=== PATIENT | female | born 1975 | race Caucasian/White ===

== ENCOUNTER 2016-12-18 17:29 | Emergency (ER) | payer MEDICARE, OTHER | END 2016-12-18 23:40 | disposition left against medical advice (07) | LOC: ER1 17:29 | DX: Z53.21 Procedure and treatment not carried out due to patient leaving prior to being seen by health care provider (principal) ==

== ENCOUNTER → 2016-12-19 | Outpatient (CLI) | payer MEDICARE, OTHER | LOC: RAD 15:21 | DX: M25.552 Pain in left hip (principal) | CPT/HCPCS: 73502 ==

== ENCOUNTER → 2017-01-29 | Outpatient (CLI) | payer MEDICARE, OTHER | LOC: EMI 01-26 13:00 | DX: M54.5 Low back pain (principal); M79.7 Fibromyalgia; F32.9 Major depressive disorder, single episode, unspecified; M54.2 Cervicalgia; M51.36 Other intervertebral disc degeneration, lumbar region; M47.816 Spondylosis without myelopathy or radiculopathy, lumbar region | CPT/HCPCS: 72148 ==

== ENCOUNTER → 2020-12-19 | Day surgery (SDC) | payer MEDICARE, OTHER ==
[~2020-12-19] MED LIST: BENTYL 20MG TAB20 MG PO; CIPRO500 MG PO; CLARITIN10 MG PO; FLAGYL500 MG PO; FLONASE 0.05% N16 GM; GABAPENTIN800 MG PO; LEVEMIR100 UNIT/1 SQ; LIPITOR TAB 2020 MG PO; LISINOPRIL2.5 MG PO; METHLMAZOLE PO; NAPROSYN500 MG PO; OMEPRAZOLE20 M1 PO; OXYCODONE HCL10 MG PO; PROAIR DIGIHAL90 MCG INH; SINGULAIR10 MG PO; SYNJARDY PO; TAPAZOLE 10 MG10 MG PO; TRULICITY1.5 MG/0.5 SQ; ZOFRAN4 MG PO
== END | disposition home or self-care (01) ==
LOC: OR 07:38
PROVIDERS: Internal Medicine Gastroenterology
PROC: 0DB78ZX Excision of Stomach, Pylorus, Via Natural or Artificial Opening Endoscopic, Diagnostic (ICD-10-PCS; 2020-12-19)
PROC: 0DB68ZX Excision of Stomach, Via Natural or Artificial Opening Endoscopic, Diagnostic (ICD-10-PCS; principal; 2020-12-19 08:51)
DX: K29.51 Unspecified chronic gastritis with bleeding (principal); K21.00 Gastro-esophageal reflux disease with esophagitis, without bleeding; K76.0 Fatty (change of) liver, not elsewhere classified; J39.2 Other diseases of pharynx; E11.9 Type 2 diabetes mellitus without complications; I10 Essential (primary) hypertension; E21.3 Hyperparathyroidism, unspecified; J45.909 Unspecified asthma, uncomplicated; M19.90 Unspecified osteoarthritis, unspecified site; E05.00 Thyrotoxicosis with diffuse goiter without thyrotoxic crisis or storm; E78.5 Hyperlipidemia, unspecified; F41.9 Anxiety disorder, unspecified; E66.9 Obesity, unspecified; Z68.34 Body mass index [BMI] 34.0-34.9, adult; Z88.0 Allergy status to penicillin; Z79.891 Long term (current) use of opiate analgesic; Z79.899 Other long term (current) drug therapy
CPT/HCPCS: 36415; 80076; 82962; 84703; J2405; J2704

== ENCOUNTER → 2020-12-26 | Outpatient (CLI) | payer MEDICARE, OTHER ==
[2020-12-26 08:46] LABS: BUN/CREATININE RATIO 9 (0-10)
== END ==
LOC: OPSV2 07:38
PROVIDERS: Otolaryngology
DX: Z01.818 Encounter for other preprocedural examination (principal); E11.9 Type 2 diabetes mellitus without complications
CPT/HCPCS: 36415; 80048; 93005

== ENCOUNTER → 2020-12-28 | Day surgery (SDC) | payer MEDICARE, OTHER | END | disposition home or self-care (01) | LOC: OR 06:19 | PROVIDERS: Otolaryngology | PROC: 0CBM8ZX Excision of Pharynx, Via Natural or Artificial Opening Endoscopic, Diagnostic (ICD-10-PCS; principal; 2020-12-28 08:00) | DX: K14.8 Other diseases of tongue (principal); K21.9 Gastro-esophageal reflux disease without esophagitis; E78.00 Pure hypercholesterolemia, unspecified; F41.1 Generalized anxiety disorder; F32.9 Major depressive disorder, single episode, unspecified; E11.9 Type 2 diabetes mellitus without complications; E05.00 Thyrotoxicosis with diffuse goiter without thyrotoxic crisis or storm; I10 Essential (primary) hypertension; E78.5 Hyperlipidemia, unspecified; J45.909 Unspecified asthma, uncomplicated; M79.7 Fibromyalgia; M19.90 Unspecified osteoarthritis, unspecified site; F41.0 Panic disorder [episodic paroxysmal anxiety]; Z20.822 Contact with and (suspected) exposure to COVID-19; Z79.4 Long term (current) use of insulin; Z79.891 Long term (current) use of opiate analgesic; Z79.899 Other long term (current) drug therapy | CPT/HCPCS: 82962; 84703; 88341; 88342; 88365; J1100; J2001; J2250; J2270; J2405; J2704; J3010; J7120 ==

== ENCOUNTER 2021-01-02 09:43 | Emergency (ER) | payer MEDICARE, OTHER ==
[~2021-01-02 09:43] MED LIST changes: -CIPRO500 MG PO; -FLAGYL500 MG PO
[2021-01-02 11:20] LABS: HEMOGLOBIN 14.7 gm/dl (12.3-15.3); RED BLOOD COUNT 4.92 M/UL (4.00-5.10); WHITE BLOOD COUNT 19.2 K/UL (4.5-11.0)
[2021-01-02 11:29] LABS: BUN/CREATININE RATIO 14 (0-10)
[2021-01-02] MEDS ORDERED: ZOFRAN4 MG PO (15:47)
[2021-01-02] MEDS ORDERED: FLAGYL500 MG PO (15:47)
[2021-01-02] MEDS ORDERED: CIPRO500 MG PO (15:47)
== END 2021-01-02 16:08 | disposition home or self-care (01) ==
LOC: ER1 09:43
PROVIDERS: Emergency Medicine
DX: K52.9 Noninfective gastroenteritis and colitis, unspecified (principal); E11.9 Type 2 diabetes mellitus without complications; Z79.4 Long term (current) use of insulin; E78.5 Hyperlipidemia, unspecified; I10 Essential (primary) hypertension; J45.909 Unspecified asthma, uncomplicated; Z90.89 Acquired absence of other organs; Z88.0 Allergy status to penicillin; Z88.6 Allergy status to analgesic agent; Z88.8 Allergy status to other drugs, medicaments and biological substances
CPT/HCPCS: 80053; 81001; 82150; 82962; 83605; 83690; 84703; 85025; 96374; 96375; 99284; J2270; J2405; J7030; Q9967

== ENCOUNTER → 2021-01-28 | Outpatient (CLI) | payer MEDICARE, OTHER ==
[~2021-01-28] MED LIST changes: +CIPRO500 MG PO; +FLAGYL500 MG PO
== END ==
LOC: CT 01-21 11:30
PROVIDERS: Internal Medicine
DX: E11.21 Type 2 diabetes mellitus with diabetic nephropathy (principal); E05.00 Thyrotoxicosis with diffuse goiter without thyrotoxic crisis or storm; D37.02 Neoplasm of uncertain behavior of tongue
CPT/HCPCS: 36415; 70491; 83036; 83520; 84439; 84443; 84481; Q9967

== ENCOUNTER → 2021-02-26 | Outpatient (CLI) | payer MEDICARE, OTHER | LOC: CT 02-19 09:00 | DX: R59.0 Localized enlarged lymph nodes (principal); I72.8 Aneurysm of other specified arteries | CPT/HCPCS: 71260; Q9967 ==

== ENCOUNTER → 2021-06-21 | Outpatient (CLI) | payer MEDICARE, OTHER | LOC: RAD 10:47 | DX: R05 Cough (principal); J98.4 Other disorders of lung | CPT/HCPCS: 71046 ==

== ENCOUNTER 2021-06-22 17:44 | Inpatient (IN) | payer MEDICARE, OTHER ==
[~2021-06-22] VITALS: Ht 154.9 cm; Wt 81.6 kg
[2021-06-22 20:12] LABS: HEMOGLOBIN 13.9 gm/dl (12.3-15.3); RED BLOOD COUNT 4.92 M/UL (4.00-5.10); WHITE BLOOD COUNT 4.8 K/UL (4.5-11.0)
[2021-06-22 20:43] LABS: BUN/CREATININE RATIO 13 (0-10)
[2021-06-23 04:53] LABS: HEMOGLOBIN 13.4 gm/dl (12.3-15.3); RED BLOOD COUNT 4.74 M/UL (4.00-5.10); WHITE BLOOD COUNT 3.8 K/UL (4.5-11.0)
[2021-06-23 06:00] LABS: BUN/CREATININE RATIO 15 (0-10)
[2021-06-24 07:39] LABS: HEMOGLOBIN 13.2 gm/dl (12.3-15.3); RED BLOOD COUNT 4.72 M/UL (4.00-5.10)
[2021-06-24 07:45] LABS: WHITE BLOOD COUNT 4.9 K/UL (4.5-11.0)
[2021-06-24 08:10] LABS: BUN/CREATININE RATIO 25 (0-10)
--- NOTE | 2021-06-24 10:52 | NUR ---
CALLED PROVIDER FOR ANXIETY MEDICAITON FOR PATIENT AND STOOL SOFTENER. PROVIDER SAID HE WOULD PUT SOMETHING IN FOR PATIENT. WILL CONTINUE TO MONITOR.
[2021-06-25 03:40] LABS: HEMOGLOBIN 13.8 gm/dl (12.3-15.3); RED BLOOD COUNT 4.89 M/UL (4.00-5.10); WHITE BLOOD COUNT 4.9 K/UL (4.5-11.0)
[2021-06-25 04:09] LABS: BUN/CREATININE RATIO 29 (0-10)
[2021-06-26 03:23] LABS: HEMOGLOBIN 14.3 gm/dl (12.3-15.3); RED BLOOD COUNT 5.06 M/UL (4.00-5.10)
[2021-06-26 03:35] LABS: WHITE BLOOD COUNT 6.5 K/UL (4.5-11.0)
[2021-06-26 03:59] LABS: BUN/CREATININE RATIO 27 (0-10)
[2021-06-27 03:24] LABS: HEMOGLOBIN 13.9 gm/dl (12.3-15.3); RED BLOOD COUNT 4.87 M/UL (4.00-5.10); WHITE BLOOD COUNT 7.5 K/UL (4.5-11.0)
[2021-06-27 03:46] LABS: BUN/CREATININE RATIO 28 (0-10)
[2021-06-28 03:21] LABS: HEMOGLOBIN 14.1 gm/dl (12.3-15.3); RED BLOOD COUNT 4.94 M/UL (4.00-5.10)
[2021-06-28 03:29] LABS: WHITE BLOOD COUNT 9.4 K/UL (4.5-11.0)
[2021-06-28 03:43] LABS: BUN/CREATININE RATIO 34 (0-10)
[2021-06-29 03:57] LABS: HEMOGLOBIN 13.6 gm/dl (12.3-15.3); RED BLOOD COUNT 4.74 M/UL (4.00-5.10); WHITE BLOOD COUNT 12.8 K/UL (4.5-11.0)
[2021-06-29 04:15] LABS: BUN/CREATININE RATIO 33 (0-10)
[2021-06-30 03:04] LABS: RED BLOOD COUNT 4.85 M/UL (4.00-5.10); WHITE BLOOD COUNT 15.2 K/UL (4.5-11.0)
[2021-06-30 03:24] LABS: BUN/CREATININE RATIO 20 (0-10)
[2021-07-01 09:38] LABS: BUN/CREATININE RATIO 13 (0-10)
[2021-07-01 09:54] LABS: HEMOGLOBIN 13.6 gm/dl (12.3-15.3); RED BLOOD COUNT 4.79 M/UL (4.00-5.10); WHITE BLOOD COUNT 15.1 K/UL (4.5-11.0)
[2021-07-02 00:23] LABS: HEMOGLOBIN 13.4 gm/dl (12.3-15.3); RED BLOOD COUNT 4.7 M/UL (4.00-5.10); WHITE BLOOD COUNT 12.4 K/UL (4.5-11.0)
[2021-07-02 05:41] LABS: BUN/CREATININE RATIO 21 (0-10)
[2021-07-03 05:38] LABS: HEMOGLOBIN 12.6 gm/dl (12.3-15.3); RED BLOOD COUNT 4.42 M/UL (4.00-5.10)
[2021-07-03 05:39] LABS: WHITE BLOOD COUNT 17.7 K/UL (4.5-11.0)
[2021-07-03 05:52] LABS: BUN/CREATININE RATIO 21 (0-10)
[2021-07-04 05:15] LABS: HEMOGLOBIN 14.7 gm/dl (12.3-15.3); RED BLOOD COUNT 4.96 M/UL (4.00-5.10); WHITE BLOOD COUNT 11.9 K/UL (4.5-11.0)
[2021-07-04 05:43] LABS: BUN/CREATININE RATIO 35 (0-10)
[2021-07-05 05:04] LABS: HEMOGLOBIN 15.5 gm/dl (12.3-15.3); RED BLOOD COUNT 5.2 M/UL (4.00-5.10); WHITE BLOOD COUNT 13.7 K/UL (4.5-11.0)
[2021-07-05 05:25] LABS: BUN/CREATININE RATIO 33 (0-10)
[2021-07-06 05:38] LABS: HEMOGLOBIN 14.2 gm/dl (12.3-15.3); RED BLOOD COUNT 4.78 M/UL (4.00-5.10)
[2021-07-06 06:07] LABS: BUN/CREATININE RATIO 31 (0-10)
[2021-07-06 09:58] LABS: BUN/CREATININE RATIO 25 (0-10)
[2021-07-06 17:20] LABS: ACINETOBACTER BAUMANNII Not Detected (Negative); CANDIDA ALBICANS Not Detected (Negative); CANDIDA KRUSEI Not Detected (Negative); CANDIDA TROPICALIS Not Detected (Negative); ENTEROCOCCUS Not Detected (Negative); ESCHERICHIA COLI Not Detected (Negative); HAEMOPHILUS INFLUENZAE Not Detected (Negative); KLEBSIELLA OXYTOCA Not Detected (Negative); KLEBSIELLA PNEUMONIAE Not Detected (Negative); KPC-CARBAPENEM-RESISTANCE GENE Not Detected (Negative); PROTEUS Not Detected (Negative); PSEUDOMONAS AERUGINOSA Not Detected (Negative); SERRATIA MARCESANS Not Detected (Negative); STAPHYLOCOCCUS AUREUS Not Detected (Negative); STREP AGALACTIAE (GROUP B) Not Detected (Negative); STREP PYOGENES (GROUP A) Not Detected (Negative); STREPTOCOCCUS Not Detected (Negative); vanA/B (VANCOMYCIN RESIST GENE Not Detected (Negative)
[2021-07-06 18:39] LABS: mecA (METHICILLIN RESIST GENE DETECTED (Negative)
[2021-07-06 18:40] LABS: STAPHYLOCOCCUS DETECTED (Negative)
[2021-07-07 04:17] LABS: HEMOGLOBIN 14.2 gm/dl (12.3-15.3); RED BLOOD COUNT 4.75 M/UL (4.00-5.10)
[2021-07-07 04:38] LABS: BUN/CREATININE RATIO 23 (0-10)
[2021-07-07 04:51] LABS: WHITE BLOOD COUNT 11.2 K/UL (4.5-11.0)
[2021-07-08 06:23] LABS: BUN/CREATININE RATIO 33 (0-10)
[2021-07-08 08:11] LABS: HEMOGLOBIN 12.9 gm/dl (12.3-15.3); RED BLOOD COUNT 4.51 M/UL (4.00-5.10)
[2021-07-08 08:13] LABS: WHITE BLOOD COUNT 15.8 K/UL (4.5-11.0)
--- NOTE | 2021-07-09 02:59 | NUR ---
0230- IN 2112 ATTEMPTING TO INTUBATE ANOTHER PATIENT AND THIS PATIENT DISCONNECTS HER BIPAP. O2 SAT WAS 24%. PATIENT WAS BAGGED AND OXYGEN LEVEL BROUGHT BACK UP. PATIENT PLACED BACK ON BIPAP. DR MANNING NOTIFIED. ABG DONE
[2021-07-09 05:31] LABS: HEMOGLOBIN 15.7 gm/dl (12.3-15.3); RED BLOOD COUNT 5.38 M/UL (4.00-5.10)
[2021-07-09 05:32] LABS: WHITE BLOOD COUNT 37.8 K/UL (4.5-11.0)
[2021-07-09 05:50] LABS: BUN/CREATININE RATIO 38 (0-10)
--- NOTE | 2021-07-09 05:52 | NUR ---
0350-NOTFIED DR MANNING THAT PATIENT O2 SAT WAS IN THE 80'S, RR 40-50'S, AND HR 120'S. 0400-DR MANNING ARRIVED TO FLOOR, PATIENT NOTIFIED THAT PATIENT NEEDED REINTUBATION. 0418-PATIENT INTUBATED. SEE ORDERS
[2021-07-10 05:31] LABS: HEMOGLOBIN 14.6 gm/dl (12.3-15.3); RED BLOOD COUNT 4.98 M/UL (4.00-5.10)
[2021-07-11 06:53] LABS: HEMOGLOBIN 12.3 gm/dl (12.3-15.3); RED BLOOD COUNT 4.3 M/UL (4.00-5.10); WHITE BLOOD COUNT 26.5 K/UL (4.5-11.0)
[2021-07-12 05:18] LABS: HEMOGLOBIN 11.7 gm/dl (12.3-15.3); RED BLOOD COUNT 4.03 M/UL (4.00-5.10)
[2021-07-12 05:28] LABS: WHITE BLOOD COUNT 10.6 K/UL (4.5-11.0)
[2021-07-12 05:33] LABS: BUN/CREATININE RATIO 29 (0-10)
[2021-07-13 05:54] LABS: HEMOGLOBIN 12.5 gm/dl (12.3-15.3); RED BLOOD COUNT 4.21 M/UL (4.00-5.10); WHITE BLOOD COUNT 11.6 K/UL (4.5-11.0)
[2021-07-13 06:08] LABS: BUN/CREATININE RATIO 28 (0-10)
[2021-07-14 08:19] LABS: HEMOGLOBIN 12.4 gm/dl (12.3-15.3); RED BLOOD COUNT 4.22 M/UL (4.00-5.10)
[2021-07-14 08:42] LABS: BUN/CREATININE RATIO 40 (0-10)
[2021-07-15 04:30] LABS: HEMOGLOBIN 13.5 gm/dl (12.3-15.3); RED BLOOD COUNT 4.51 M/UL (4.00-5.10); WHITE BLOOD COUNT 16.8 K/UL (4.5-11.0)
[2021-07-15 04:47] LABS: BUN/CREATININE RATIO 38 (0-10)
[2021-07-16 03:57] LABS: HEMOGLOBIN 13.1 gm/dl (12.3-15.3); RED BLOOD COUNT 4.39 M/UL (4.00-5.10); WHITE BLOOD COUNT 18.3 K/UL (4.5-11.0)
[2021-07-16 04:26] LABS: BUN/CREATININE RATIO 31 (0-10)
[2021-07-17 05:37] LABS: HEMOGLOBIN 13.5 gm/dl (12.3-15.3); RED BLOOD COUNT 4.57 M/UL (4.00-5.10); WHITE BLOOD COUNT 18.1 K/UL (4.5-11.0)
[2021-07-17 05:54] LABS: BUN/CREATININE RATIO 23 (0-10)
[2021-07-18 05:02] LABS: HEMOGLOBIN 12.7 gm/dl (12.3-15.3); RED BLOOD COUNT 4.3 M/UL (4.00-5.10)
[2021-07-18 05:03] LABS: WHITE BLOOD COUNT 13.4 K/UL (4.5-11.0)
[2021-07-18 05:22] LABS: BUN/CREATININE RATIO 29 (0-10)
[2021-07-19 06:06] LABS: HEMOGLOBIN 13.4 gm/dl (12.3-15.3); RED BLOOD COUNT 4.57 M/UL (4.00-5.10); WHITE BLOOD COUNT 11.9 K/UL (4.5-11.0)
[2021-07-19 06:22] LABS: BUN/CREATININE RATIO 19 (0-10)
[2021-07-20 06:23] LABS: HEMOGLOBIN 11.6 gm/dl (12.3-15.3); WHITE BLOOD COUNT 11.5 K/UL (4.5-11.0)
[2021-07-20 06:29] LABS: RED BLOOD COUNT 3.91 M/UL (4.00-5.10)
[2021-07-20 07:44] LABS: BUN/CREATININE RATIO 14 (0-10)
[2021-07-22 06:14] LABS: HEMOGLOBIN 10.2 gm/dl (12.3-15.3); WHITE BLOOD COUNT 13.2 K/UL (4.5-11.0)
[2021-07-22 06:39] LABS: RED BLOOD COUNT 3.49 M/UL (4.00-5.10)
[2021-07-22 06:45] LABS: BUN/CREATININE RATIO 9 (0-10)
[2021-07-23 05:28] LABS: BUN/CREATININE RATIO 9 (0-10)
[2021-07-24 09:24] LABS: BUN/CREATININE RATIO 21 (0-10)
[2021-07-25 06:23] LABS: HEMOGLOBIN 9.3 gm/dl (12.3-15.3); RED BLOOD COUNT 3.23 M/UL (4.00-5.10)
[2021-07-25 06:26] LABS: WHITE BLOOD COUNT 7.1 K/UL (4.5-11.0)
[2021-07-25 07:10] LABS: BUN/CREATININE RATIO 29 (0-10)
[2021-07-26 04:30] LABS: BUN/CREATININE RATIO 27 (0-10)
[2021-07-27 05:58] LABS: BUN/CREATININE RATIO 49 (0-10)
[2021-07-28 05:47] LABS: HEMOGLOBIN 10.9 gm/dl (12.3-15.3); RED BLOOD COUNT 3.8 M/UL (4.00-5.10); WHITE BLOOD COUNT 11.3 K/UL (4.5-11.0)
[2021-07-28 08:04] LABS: BUN/CREATININE RATIO 66 (0-10)
[2021-07-29 04:47] LABS: HEMOGLOBIN 10.7 gm/dl (12.3-15.3); RED BLOOD COUNT 3.7 M/UL (4.00-5.10)
[2021-07-29 05:47] LABS: BUN/CREATININE RATIO 74 (0-10)
[2021-07-30 05:42] LABS: HEMOGLOBIN 11.4 gm/dl (12.3-15.3); RED BLOOD COUNT 3.99 M/UL (4.00-5.10)
[2021-07-30 05:46] LABS: BUN/CREATININE RATIO 70 (0-10)
[2021-07-31] MEDS ORDERED: FENTANYL1 EAC1 TOP (03:21)
[2021-07-31] MEDS ORDERED: IBUPROFEN800 MG PO (03:21)
[2021-07-31] MEDS ORDERED: IPRAT-ALBUT 0.5-3 ML NEB (03:21)
[2021-07-31] MEDS ORDERED: TYLENOL ELIXIR PO (03:21)
[2021-07-31] MEDS ORDERED: ASPIRIN EC81 MG PO (03:21)
[2021-07-31] MEDS ORDERED: OXYCODONE HCL5 MG GT (03:21)
[2021-07-31] MEDS ORDERED: LOPRESSOR 50 MG50 MG PO (03:21)
[2021-07-31] MEDS ORDERED: VALIUM 5 MG TAB5 MG PO (03:21)
[2021-07-31] MEDS ORDERED: STIMULANT LAXA1 EACH PO (03:21)
[2021-07-31] MEDS ORDERED: QUETIAPINE FUM100 MG PO (03:21)
[2021-07-31] MEDS ORDERED: ELIQUIS 5 MG TAB5 MG PEG (03:21)
[2021-07-31] MEDS ORDERED: HUMALOG 10100 UNITS/ SC (03:21)
[2021-07-31] MEDS ORDERED: ATIVAN IV/IM2 MG/ML IVP (03:21)
[2021-07-31] MEDS ORDERED: KLONOPIN TAB 00.5 MG PO (03:21)
[2021-07-31 05:16] LABS: HEMOGLOBIN 11.8 gm/dl (12.3-15.3); RED BLOOD COUNT 4.09 M/UL (4.00-5.10); WHITE BLOOD COUNT 12.2 K/UL (4.5-11.0)
[2021-07-31 06:04] LABS: BUN/CREATININE RATIO 64 (0-10)
== END 2021-07-31 09:29 | DRG 4 ==
LOC: ER1 17:44 → CDU 21:47 → MED SURG 4 21:47 → PROG CARE 21:47 → CCU 21:47 → CDU 06-23 08:35 → M/S 06-23 10:09 → MED SURG 4 06-23 17:06 → PROG CARE 06-24 22:01 → CCU 07-01 12:02 → CDU 07-13 02:20 → CCU 07-13 02:21
PROVIDERS: Family Medicine; Internal Medicine; Internal Medicine Infectious Disease; Internal Medicine Pulmonary Disease; Surgery; ADMIT Internal Medicine
PROC: 3E0333Z Introduction of Anti-inflammatory into Peripheral Vein, Percutaneous Approach (ICD-10-PCS; 2021-06-22)
PROC: 8E0ZXY6 Isolation (ICD-10-PCS; 2021-06-22)
PROC: XW033E5 Introduction of Remdesivir Anti-infective into Peripheral Vein, Percutaneous Approach, New Technology Group 5 (ICD-10-PCS; 2021-06-23)
PROC: 5A0935A Assistance with Respiratory Ventilation, Less than 24 Consecutive Hours, High Flow/Velocity Cannula (ICD-10-PCS; 2021-06-23)
PROC: 5A09457 Assistance with Respiratory Ventilation, 24-96 Consecutive Hours, Continuous Positive Airway Pressure (ICD-10-PCS; 2021-06-24)
PROC: 5A1955Z Respiratory Ventilation, Greater than 96 Consecutive Hours (ICD-10-PCS; principal; 2021-07-01)
PROC: 3E033XZ Introduction of Vasopressor into Peripheral Vein, Percutaneous Approach (ICD-10-PCS; 2021-07-01)
PROC: 0BH17EZ Insertion of Endotracheal Airway into Trachea, Via Natural or Artificial Opening (ICD-10-PCS; 2021-07-01)
PROC: 0BH17EZ Insertion of Endotracheal Airway into Trachea, Via Natural or Artificial Opening (ICD-10-PCS; 2021-07-03)
PROC: 5A1955Z Respiratory Ventilation, Greater than 96 Consecutive Hours (ICD-10-PCS; 2021-07-03)
PROC: 0BH17EZ Insertion of Endotracheal Airway into Trachea, Via Natural or Artificial Opening (ICD-10-PCS; 2021-07-09)
PROC: 5A1945Z Respiratory Ventilation, 24-96 Consecutive Hours (ICD-10-PCS; 2021-07-09)
PROC: 0B113F4 Bypass Trachea to Cutaneous with Tracheostomy Device, Percutaneous Approach (ICD-10-PCS; 2021-07-12)
PROC: 0DH63UZ Insertion of Feeding Device into Stomach, Percutaneous Approach (ICD-10-PCS; 2021-07-12)
PROC: 0BJ08ZZ Inspection of Tracheobronchial Tree, Via Natural or Artificial Opening Endoscopic (ICD-10-PCS; 2021-07-12)
PROC: 3E0G76Z Introduction of Nutritional Substance into Upper GI, Via Natural or Artificial Opening (ICD-10-PCS; 2021-07-12)
DX: U07.1 COVID-19 (principal); J12.82 Pneumonia due to coronavirus disease 2019; J15.9 Unspecified bacterial pneumonia; A41.9 Sepsis, unspecified organism; J80 Acute respiratory distress syndrome; G93.41 Metabolic encephalopathy; R65.21 Severe sepsis with septic shock; J44.0 Chronic obstructive pulmonary disease with (acute) lower respiratory infection; N17.9 Acute kidney failure, unspecified; J93.83 Other pneumothorax; K21.9 Gastro-esophageal reflux disease without esophagitis; I10 Essential (primary) hypertension; E11.40 Type 2 diabetes mellitus with diabetic neuropathy, unspecified; F41.9 Anxiety disorder, unspecified; F32.9 Major depressive disorder, single episode, unspecified; E11.649 Type 2 diabetes mellitus with hypoglycemia without coma; I95.9 Hypotension, unspecified; E78.5 Hyperlipidemia, unspecified; E03.9 Hypothyroidism, unspecified; D64.9 Anemia, unspecified; E05.90 Thyrotoxicosis, unspecified without thyrotoxic crisis or storm; E87.70 Fluid overload, unspecified; L89.152 Pressure ulcer of sacral region, stage 2; L89.312 Pressure ulcer of right buttock, stage 2; R41.0 Disorientation, unspecified; Z79.4 Long term (current) use of insulin; Z88.0 Allergy status to penicillin; Z83.3 Family history of diabetes mellitus
CPT/HCPCS: 31500; 36415; 36600; 71045; 71046; 71275; 74018; 80048; 80053; 80202; 81001; 82550; 82553; 82728; 82803; 82962; 83605; 83615; 83690; 83735; 83874; 83880; 84100; 84132; 84439; 84443; 84484; 84703; 85025; 85027; 85379; 85384; 85610; 86140; 87040; 87070; 87077; 87081; 87086; 87150; 87186; 87205; 92526; 92610; 93005; 94002; 94003; 94640; 94660; 94664; 94760; 96374; 96375; 97116-GP-CQ; 97161; 97530; 99285; A6212; C1769; C9113; G0378; J0330; J0456; J0696; J1100; J1120; J1205; J1335; J1650; J1885; J1940; J2060; J2185; J2248; J2250; J2370; J2405; J2704; J2920; J3010; J3370; J3480; J7030; J7040; J7050; J7070; J7120; P9047; Q9967

== ENCOUNTER 2021-12-24 16:55 | Emergency (ER) | payer MEDICARE ==
[~2021-12-24 16:55] MED LIST changes: -CLOPIDOGREL75 MG PO; -LO-DOSE ASPIRIN81 MG PO
[2021-12-24 17:43] LABS: HEMOGLOBIN 14.2 gm/dl (12.3-15.3); RED BLOOD COUNT 5.01 M/UL (4.00-5.10); WHITE BLOOD COUNT 10.8 K/UL (4.5-11.0)
[2021-12-24 18:04] LABS: BUN/CREATININE RATIO 17 (0-10)
[2021-12-24] MEDS ORDERED: LO-DOSE ASPIRIN81 MG PO (20:52)
[2021-12-24] MEDS ORDERED: CLOPIDOGREL75 MG PO (20:52)
== END 2021-12-24 21:16 | disposition home or self-care (01) ==
LOC: ER1 16:55
PROVIDERS: Family Medicine
DX: I77.71 Dissection of carotid artery (principal); R20.2 Paresthesia of skin; Z20.822 Contact with and (suspected) exposure to COVID-19; E10.21 Type 1 diabetes mellitus with diabetic nephropathy; I10 Essential (primary) hypertension; J44.9 Chronic obstructive pulmonary disease, unspecified; Z88.0 Allergy status to penicillin
CPT/HCPCS: 70496; 70498; 80048; 82550; 82553; 82962; 84484; 85025; 85610; 93005; 99284; Q9967; U0002

== ENCOUNTER → 2021-12-24 | Outpatient (CLI) | payer MEDICARE ==
[~2021-12-24] MED LIST changes: +ASPIRIN EC81 MG PO; +ATIVAN IV/IM2 MG/ML IVP; +CLOPIDOGREL75 MG PO; +ELIQUIS 5 MG TAB5 MG PEG; +FENTANYL1 EAC1 TOP; +HUMALOG 10100 UNITS/ SC; +IBUPROFEN800 MG PO; +IPRAT-ALBUT 0.5-3 ML NEB; +KLONOPIN TAB 00.5 MG PO; +LO-DOSE ASPIRIN81 MG PO; +LOPRESSOR 50 MG50 MG PO; +OXYCODONE HCL5 MG GT; +QUETIAPINE FUM100 MG PO; +STIMULANT LAXA1 EACH PO; +TYLENOL ELIXIR PO; +VALIUM 5 MG TAB5 MG PO
== END ==
LOC: KOH-I 15:10 → EXRD 15:30
DX: R29.898 Other symptoms and signs involving the musculoskeletal system (principal)
CPT/HCPCS: 93880